=== PATIENT | female | born 1965 | race Caucasian/White ===

== ENCOUNTER 2020-03-10 07:19 | Day surgery (SDC) | payer OTHER ==
--- NOTE | 2020-03-04 09:46 | EKG REPORT ---
SEVERITY:- NORMAL ECG - SINUS RHYTHM : Confirmed by: uRthie Salazar MD 04-Mar-2020 09:44:55
--- NOTE | 2020-03-04 10:00 | RADIOLOGY REPORT (SQ) ---
EXAM DESCRIPTION: CHEST PA/LATERAL IMAGES COMPLETED DATE/TIME: 03/04/2020 9:38 am REASON FOR STUDY: PRE-OP COMPARISON: 03/24/2011 EXAM PARAMETERS: NUMBER OF VIEWS: two views TECHNIQUE: Digital Frontal and Lateral radiographic views of the chest acquired. RADIATION DOSE: NA LIMITATIONS: none FINDINGS: LUNGS AND PLEURA: No opacities, masses or pneumothorax. No pleural effusion. MEDIASTINUM AND HILAR STRUCTURES: No masses or contour abnormalities. HEART AND VASCULAR STRUCTURES: Heart normal size. No evidence for failure. BONES: No acute findings. HARDWARE: None in the chest. OTHER: No other significant finding. IMPRESSION: NO SIGNIFICANT RADIOGRAPHIC FINDING IN THE CHEST. TECHNICAL DOCUMENTATION: JOB ID: [id number] 2010 [employer]- All Rights Reserved Reading location - IP/workstation name: [email or web address]
[2020-03-04 10:12] LABS: HEMOGLOBIN 13.7 g/dL (12.0-15.5); MEAN CORPUSCULAR HEMOGLOBIN 30.8 pg (27.0-33.4); MEAN CORPUSCULAR HGB CONC 34.3 g/dL (32.0-36.0); MEAN CORPUSCULAR VOLUME 90 fl (80-97); PLATELET COUNT 228 10^3/uL (150-450); RED BLOOD COUNT 4.44 10^6/uL (3.72-5.28); RED CELL DISTRIBUTION WIDTH 13.7 % (11.5-14.0); WHITE BLOOD COUNT 5.4 10^3/uL (4.0-10.5)
[2020-03-04 10:36] LABS: ANION GAP 10 (5-19); BLOOD UREA NITROGEN 10 mg/dL (7-20); CALCIUM 9.7 mg/dL (8.4-10.2); CARBON DIOXIDE 27 mmol/L (22-30); CHLORIDE 103 mmol/L (98-107); GLUCOSE 98 mg/dL (75-110); POTASSIUM 4.6 mmol/L (3.6-5.0)
[~2020-03-10 07:19] MED LIST: CEFAZOLIN 2 GM/D5W RTU 2 GM/50 ML RTUPB IV ONE
[2020-03-10] MEDS ORDERED: GLYCOPYRROLATE 1 MG/5 ML VIAL ONE (10:07)
[2020-03-10] MEDS ORDERED: NEOSTIGMINE METHYLSULFATE 10 MG/10 ML VIAL ONE (10:07)
[2020-03-10] MEDS ORDERED: LIDOCAINE 2% INJ-PF (20 MG/ML) 2 ML AMPUL ONE (10:07)
[2020-03-10] MEDS ORDERED: ONDANSETRON HCL INJ/PF 4 MG/2 ML SDV ONE (10:07)
[2020-03-10] MEDS ORDERED: ROCURONIUM BROMIDE INJ 50 MG/5 ML VIAL IV ONE (10:07)
[2020-03-10] MEDS ORDERED: SUCCINYLCHOLINE CHLORIDE INJ 200 MG/10 ML VIAL ONE (10:07)
[2020-03-10] MEDS ORDERED: DEXAMETHASONE SOD PHOSPHATE INJ 4 MG/1 ML VIAL ONE (10:07)
[2020-03-10] MEDS ORDERED: FENTANYL CITRATE INJ/PF 250 MCG/5 ML AMPULE ONE (10:32)
[2020-03-10] MEDS ORDERED: MIDAZOLAM 2 MG/2 ML INJ ONE (10:32)
[2020-03-10] MEDS ORDERED: PROPOFOL INJ 200 MG/20 ML VIAL IV ONE (10:33)
[2020-03-10] MEDS ORDERED: VANCOMYCIN HCL INJ 1000 MG VIAL ONE (10:34)
[2020-03-10] MEDS ORDERED: BUPIVACAINE HCL 0.5 % INJ/PF 30 ML SDV ONE (10:34)
[2020-03-10] MEDS ORDERED: BUPIVACAINE INJ/PF LIPOSOME/PF 266 MG/20 ML SDV ONE (10:35)
[2020-03-10] MEDS ORDERED: BACITRACIN INJ 50,000 UNIT VIAL ONE (10:35)
[2020-03-10] MEDS ORDERED: OXYCODONE-ACETAMINOPHEN 5-325 MG TABLET PO PRN ×3 (11:32→13:33)
[2020-03-10] MEDS ORDERED: FENTANYL CITRATE INJ/PF 100 MCG/2 ML AMPUL IV PRN ×3 (11:32)
[2020-03-10] MEDS ORDERED: DIPHENHYDRAMINE HCL 50 MG/ML VIAL IV PRN ×2 (11:32→13:38)
[2020-03-10] MEDS ORDERED: PROMETHAZINE HCL INJ 25 MG/1 ML VIAL IV PRN ×2 (11:32)
[2020-03-10] MEDS ORDERED: MEPERIDINE HCL/PF INJ 25 MG/1 ML DISP.SYRIN IV PRN (11:32)
--- NOTE | 2020-03-10 12:49 | Operative Report ---
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 The patient is placed under anesthesia. The patient received 2 g of Ancef within 1 hour of cut time. The patient is placed in the prone position on the Jensen table with a Wilberto frame attachment. The Wilberto frame was turned up to open up the interspaces posteriorly. Under lateral C-arm fluoroscopy the L4-5 level is identified. After marking the midline. After completion of prepping and draping, a midline incision is carried out measuring approximately an inch. Electrocautery was used to maintain hemostasis and dissection was carried down onto the lumbodorsal fascia which is incised on both sides of the spinous processes at L4-5. A Jayant is used to gil the posterior interspace and lateral C arm fluoroscopy is used to verify the appropriate level. The spinous process of L4 is resected. Microscope a partial laminectomy of L4 is carried out. The Kerrisons and curettes and rongeurs are used to carry out central decompression and lateral recess decompression bilaterally and foraminotomies. The ligamentum flavum is also resected extending to the lateral recess. Under the microscope the set cyst is identified on the right side and is resected part of it is sent off for permanent specimen and ligamentum flavum was resected as well as a partial facetectomy decompressing the exiting nerve root. The lateral recesses decompressed completely and the nerve root is found to be exiting freely. After that a Valsalva maneuver is performed by anesthesia noting no cerebrospinal fluid leakage or epidural bleeding. The wound is irrigated with a liter of bacitracin irrigation. The fascia was reapproximated with 0 Vicryl and the skin in the subareolar tissue with 2-0 Vicryl in the subcu running 3-0 Monocryl. The skin is dressed with benzoin and Steri-Strips and 4 x 4 gauze and tape. The Wilberto frame was turned down and the patient is brought to the supine position and extubated and brought to the recovery room. Please note this procedure could not of been done without the assistance of Len Starks physician early childhood teacher assistant working under the microscope and carrying out the discectomy and decompression.
[2020-03-10] MEDS ORDERED: METHOCARBAMOL INJ/PF 1000 MG/10 ML SDV ONE (12:51)
[2020-03-10] MEDS ORDERED: HYDROCODONE/ACETAMINOPHEN 5-325 MG TABLET PO PRN (13:33)
[2020-03-10] MEDS ORDERED: ACETAMINOPHEN 325 MG TABLET PO PRN (13:33)
[2020-03-10] MEDS ORDERED: ONDANSETRON HCL INJ/PF 4 MG/2 ML SDV IV PRN (13:34)
[2020-03-10] MEDS ORDERED: PROMETHAZINE HCL 25 MG TABLET PO PRN (13:35)
[2020-03-10] MEDS ORDERED: DIAZEPAM 5 MG TABLET PO PRN (13:36)
[2020-03-10] MEDS ORDERED: METHOCARBAMOL 500 MG TABLET PO PRN (13:36)
[2020-03-10] MEDS ORDERED: DIPHENHYDRAMINE HCL 25 MG CAPSULE PO PRN (13:37)
[2020-03-10] MEDS ORDERED: ALBUTEROL SULFATE 0.083% NEB 2.5 MG/3 ML AMPUL NEB ONE ×2 (13:41→14:15)
--- NOTE | 2020-03-10 14:09 | RADIOLOGY REPORT (SQ) ---
EXAM DESCRIPTION: SPINE SINGLE VIEW; NO CHG FLUORO IMAGES COMPLETED DATE/TIME: 03/10/2020 1:51 pm REASON FOR STUDY: LUMBAR DECOMPRESSION ASSISTED WITH FLUORO IN OR M48.061 SPINAL STENOSIS, LUMBAR R EGION WITHOUT NEUROGENIC CL M51.16 INTERVERTEBRAL DISC DISORDERS W RADICULOPATHY, LUMBAR COMPARISON: None. FLUOROSCOPY TIME: 0.1 minutes 1 images saved to PACS. TECHNIQUE: Intra-operative images acquired during surgical procedure to evaluate progress. NUMBER OF IMAGES: 1 LIMITATIONS: None. FINDINGS: Image from fluoro shows an instrument directed toward the L4-5 disc space. IMPRESSION: Images obtained during procedure. Refer to operative note for further information. COMMENT: Quality ID 145: Final reports for procedures using fluoroscopy that document radiation exp osure indices, or exposure time and number of fluorographic images (if radiation exposure indices are not available) Please consult full operative report of the attending physician for description of the procedure. TECHNICAL DOCUMENTATION: JOB ID: [id number] 2010 [employer]- All Rights Reserved Reading location - IP/workstation name: [email or web address]
--- NOTE | 2020-03-10 14:09 | RADIOLOGY REPORT (SQ) ---
EXAM DESCRIPTION: SPINE SINGLE VIEW; NO CHG FLUORO IMAGES COMPLETED DATE/TIME: 03/10/2020 1:51 pm REASON FOR STUDY: LUMBAR DECOMPRESSION ASSISTED WITH FLUORO IN OR M48.061 SPINAL STENOSIS, LUMBAR R EGION WITHOUT NEUROGENIC CL M51.16 INTERVERTEBRAL DISC DISORDERS W RADICULOPATHY, LUMBAR COMPARISON: None. FLUOROSCOPY TIME: 0.1 minutes 1 images saved to PACS. TECHNIQUE: Intra-operative images acquired during surgical procedure to evaluate progress. NUMBER OF IMAGES: 1 LIMITATIONS: None. FINDINGS: Image from fluoro shows an instrument directed toward the L4-5 disc space. IMPRESSION: Images obtained during procedure. Refer to operative note for further information. COMMENT: Quality ID 145: Final reports for procedures using fluoroscopy that document radiation exp osure indices, or exposure time and number of fluorographic images (if radiation exposure indices are not available) Please consult full operative report of the attending physician for description of the procedure. TECHNICAL DOCUMENTATION: JOB ID: [id number] 2010 [employer]- All Rights Reserved Reading location - IP/workstation name: [email or web address]
[2020-03-10] MEDS ORDERED: HYDROCODONE/ACETAMINOPHEN 5-325 MG TABLET ONE (14:17)
[2020-03-10 15:29] VITALS: BP 104/60
== END 2020-03-10 15:38 | disposition home or self-care (01) ==
LOC: OROUT 07:19
PROVIDERS: ATTEND Orthopaedic Surgery
DX: M48.061 Spinal stenosis, lumbar region without neurogenic claudication (principal); M51.16 Intervertebral disc disorders with radiculopathy, lumbar region; E78.5 Hyperlipidemia, unspecified; Z79.899 Other long term (current) drug therapy; Z03.818 Encounter for observation for suspected exposure to other biological agents ruled out; Z88.2 Allergy status to sulfonamides
CPT/HCPCS: 93005; 36415; 85027; 87635; 80048; 87070; 71046; 72020; 93010; 63047; J2250; J3490 ×2; J3010; J2800; J2704; J0690; C9290; C9803; J0330; J1100; J2405; J2710; J3370